=== PATIENT | female | born 1990 | race Caucasian/White ===

== ENCOUNTER 2018-09-08 03:16 | Observation (INO) | payer SELFPAY ==
[~2018-09-08] VITALS: Ht 160 cm; Wt 52.6 kg
--- OUTSIDE RECORDS SUMMARY | ~2018-09-08 | XMS | Clinical Summary ---
Demographics + + + | Address | [address] | | | [place] [address] | + + + | Home Phone | | + + + | Preferred Language | Unknown | + + + | Marital Status | Single | + + + | Protestant Affiliation | Unknown | + + + | Race | White | + + + | Ethnic Group | Not or | + + + Author + + + | Author | [facility] | + + + | Organization | [facility] | + + + | Address | Unknown | + + + | Phone | Unavailable | + + + Support + + +---------+ + | Name | Relationship | Address | Phone | + + +---------+ + | PHILIPPE LUX | ECON | Unknown | | + + +---------+ + Care Team Providers + +------+ + | Care Climatology Professor Name | Role | Phone | + +------+ + PP | Unavailable | + +------+ + Source Comments YUE is fully live on both EpicCare Ambulatory and EpicCare InPatient.[facility] Allergies + + + + + + | Active Allergy | Reactions | Severity | Noted | Comments | | | | | Date | | + + + + + + | Amoxicillin | | | 12/16/20 | | | | | | 03 | | + + + + + + | Lidocaine | | | 12/16/20 | | | | | | 03 | | + + + + + + | Penicillins | | | 12/16/20 | | | | | | 03 | | + + + + + + Current Medications Not on file Active Problems Not on file Social History + +-------+ +--------+------+ | Tobacco Use | Types | Packs/Day | Years | Date | | | | | Used | | + +-------+ +--------+------+ | Never Assessed | | | | | + +-------+ +--------+------+ + + + | Sex Assigned at | Date Recorded | | | | + + + | Not on file | | + + + Plan of Treatment + + + + + | Health Maintenance | Due Date | Last Done | Comments | + + + + + | Influenza (Flu) | | | | | vaccination (#1) | 8 | | | + + + + + Results Not on filefrom Last 3 Months"
--- OUTSIDE RECORDS SUMMARY | ~2018-09-08 | XMS | Clinical Summary ---
Demographics + + + | Address | [address] | | | [place] [address] | + + + | Home Phone | | + + + | Preferred Language | Unknown | + + + | Marital Status | Single | + + + | Druze Affiliation | Unknown | + + + | Race | White | + + + | Ethnic Group | Not or | + + + Author + + + | Author | [facility] | + + + | Organization | [facility] | + + + | Address | Unknown | + + + | Phone | Unavailable | + + + Support + + +---------+ + | Name | Relationship | Address | Phone | + + +---------+ + | PHILIPPE LUX | ECON | Unknown | | + + +---------+ + Care Team Providers + +------+ + | Care Asian Art Curator Name | Role | Phone | + +------+ + PP | Unavailable | + +------+ + Source Comments YUE is fully live on both EpicCare Ambulatory and EpicCare InPatient.[facility] Allergies + + + + + + [...]
--- OUTSIDE RECORDS SUMMARY | ~2018-09-08 | XMS | Clinical Summary ---
Demographics + + + | Address | [address] | | | [place] [address] | + + + | Home Phone | | + + + | Preferred Language | Unknown | + + + | Marital Status | Single | + + + | Druze Affiliation | Unknown | + + + | Race | Unknown | + + + | Ethnic Group | Unknown | + + + Author + + + | Author | [facility] | | | and [place] | + + + | Organization | [facility] | | | and [place]ana | + + + | Address | Unknown | + + + | Phone | Unavailable | + + + Support + + +---------+ + | Name | Relationship | Address | Phone | + + +---------+ + | PHILIPPE LUX | ECON | Unknown | | + + +---------+ + Care Team Providers + +------+ + | Care Furniture Associate Name | Role | Phone | + +------+ + PP | Unavailable | + +------+ + Allergies Not on File Medications Not on file Active Problems Not [...] on file | | + + + + + + + | Job Start Date | Occupation | Industry | + + + + | Not on file | Not on file | Not on file | + + + + + + + + | Travel History | Travel Start | Travel End | + + + + + + | No recent travel history available. | + + Plan of Treatment + + + + + | Health Maintenance | Due Date | Last Done | Comments | + + + + + | Vaccine: | | | | | Dtap/Tdap/Td (1 - | 8 | | | | Tdap) | | | | + + + + + | Cervical Cancer | | | | | Screening (Pap) | 0 | | | + + + + + | Vaccine: Influenza | | | | | (Season Ended) | 9 | | | + + + + + Results Not on filefrom Last 3 Months"
--- OUTSIDE RECORDS SUMMARY | ~2018-09-08 | XMS | Clinical Summary ---
Demographics + + + | Address | [address] | | | [place] [address] | + + + | Home Phone | | + + + | Preferred Language | Unknown | + + + | Marital Status | Single | + + + | Cheondoism Affiliation | Unknown | + + + | Race | Unknown | + + + | Ethnic Group | Unknown | + + + Author + + + | Author | [facility] | + + + | Organization | [facility] | + + + | Address | Unknown | + + + | Phone | Unavailable | + + + Support + + +---------+ + | Name | Relationship | Address | Phone | + + +---------+ + | Toni Henson | ECON | Unknown | | + + +---------+ + Care Team Providers + +------+ + | Care Poultry Farm Laborer Name | Role | Phone | + +------+ + | Martin Saucedo MD | PP | | + +------+ + Allergies Not on File Current Medications Not on file Active Problems [...] | + + + Plan of Treatment Not on file Results Not on filefrom Last 3 Months Insurance + +--------+ +------+-------+---------+ | Payer | Benefi | Subscriber | Type | Phone | Address | | | t Plan | ID | | | | | | / | | | | | | | Group | | | | | + +--------+ +------+-------+---------+ | [employer] | ODS | [id number] | | | | | | HEALTH | | | | | | | PLAN | | | | | + +--------+ +------+-------+---------+ + +--------+ +--------+ + + | Guarantor Name | Accoun | Relation to | Date | Phone | Billing Address | | | t Type | Patient | of | | | | | | | | | | + +--------+ +--------+ + + | LINDA LUX | Person | Self [birth year] Home: | [address] | | | al/Fam | | 1990 | [phone] [place] [address] | | | joy | | | [phone] | | + +--------+ +--------+ + +"
--- OUTSIDE RECORDS SUMMARY | ~2018-09-08 | XMS | Clinical Summary ---
Demographics + + + | Address | [address] | | | [place] [address] | + + + | Home Phone | | + + + | Preferred Language | Unknown | + + + | Marital Status | Single | + + + | Zoroastrianism Affiliation | Unknown | + + + | Race | Unknown | + + + | Ethnic Group | Unknown | + + + Author + + + | Author | [facility] | + + + | Organization | [facility] | + + + | Address | Unknown | + + + | Phone | Unavailable | + + + Support + + +---------+ + | Name | Relationship | Address | Phone | + + +---------+ + | Toni Henson | ECON | Unknown | | + + +---------+ + Care Team Providers + +------+ + | Care Spanish Moss Picker Name | Role | Phone | + [...] | [employer] | ODS | [id number] | | | | | | HEALTH [...] | 1990 | [phone] | [place] [address] | | | joy | | | [phone] | | + +--------+ +--------+ + +"
--- OUTSIDE RECORDS SUMMARY | ~2018-09-08 | XMS | Clinical Summary ---
Demographics + + + | Address | [address] | | | [place] [address] | + + + | Home Phone | | + + + | Preferred Language | Unknown | + + + | Marital Status | Single | + + + | Islam Affiliation | Unknown | + + + | Race | White | + + + | Ethnic Group | Not or | + + + Author + + + | Author | [facility] | + + + | Organization | [facility] | + + + | Address | Unknown | + + + | Phone | Unavailable | + + + Support + + +---------+ + | Name | Relationship | Address | Phone | + + +---------+ + | PHILIPPE LUX | ECON | Unknown | | + + +---------+ + Care Team Providers + +------+ + | Care C D Stripper Name | Role | Phone | + +------+ + PP | Unavailable | + +------+ + Source Comments YUE is fully live on both EpicCare Ambulatory and EpicCare InPatient.[facility] Allergies + + + + + + [...]
--- OUTSIDE RECORDS SUMMARY | ~2018-09-08 | XMS | Clinical Summary ---
Demographics + + + | Address | [address] | | | [place] [address] | + + + | Home Phone | | + + + | Preferred Language | Unknown | + + + | Marital Status | Single | + + + | Pentecostal Affiliation | Unknown | + + + | Race | Unknown | + + + | Ethnic Group | Unknown | + + + Author + + + | Author | [facility] | | | and [place] | + + + | Organization | [facility] | | | and [place] | [...] Team Providers + +------+ + | Care Welder Fitter Arc Name | Role | Phone | + [...]
--- OUTSIDE RECORDS SUMMARY | ~2018-09-08 | XMS | Clinical Summary ---
Demographics + + + | Address | [address] | | | [place] [address] | + + + | Home Phone | | + + + | Preferred Language | Unknown | + + + | Marital Status | Single | + + + | Bahai Affiliation | Unknown | + + + | Race | Unknown | + + + | Ethnic Group | Unknown | + + + Author + + + | Author | [facility] | | | and [place] | + + + | Organization | [facility] | | | and [...] Team Providers + +------+ + | Care Ic Designer Gate Arrays Name | Role | Phone | + [...]
--- OUTSIDE RECORDS SUMMARY | ~2018-09-08 | XMS | Clinical Summary ---
Demographics + + + | Address | [address] | | | [place] [address] | + + + | Home Phone | | + + + | Preferred Language | Unknown | + + + | Marital Status | Single | + + + | Yazidi Affiliation | Unknown | + + + | Race | Unknown | + + + | Ethnic Group | Unknown | + + + Author + + + | Author | [facility] | + + + | Organization | [facility] | + + + | Address | Unknown | + + + | Phone | Unavailable | + + + Support + + +---------+ + | Name | Relationship | Address | Phone | + + +---------+ + | Toni Henson | ECON | Unknown | | + + +---------+ + Care Team Providers + +------+ + | Care Piano Refinisher Name | Role | Phone | + [...] | [employer] | ODS | [id number] | | | | | | HEALTH [...] | 1990 | [phone] | [place] [address] | | | joy | | | [phone] | | + +--------+ +--------+ + +"
[~2018-09-08 03:16] MED LIST: AZITHROMYCIN250 MG PO; CEPHALEXIN500 MG PO; CLINDAMYCIN HC150 MG PO; DICLOFENAC SODI50 MG PO; DOXYCYCLINE MO100 MG PO; IBUPROFEN800 MG PO; METHYLPREDNISOLO4 M1 PO; NAPROSYN500 MG PO; PREDNISONE20 MG PO; PROAIR HFA8.5 GM INH; PROMETHAZINE-COD5 ML PO; ROBITUSSIN NIG118 ML PO; VENTOLIN HFA18 GM INH; VITAFOL-OB+DHA1 EACH PO; ZITHROMAX250 MG PO; ZOFRAN4 MG PO
--- OUTSIDE RECORDS SUMMARY | 2018-09-08 03:18 | XMS ---
PreManage Notification: BILL LUX Security Motion Picture Equipment Supervisor Events No recent Security Events currently on file CRITERIA MET - Group Notification CARE PROVIDERS There are no care providers on record at this time. Rachel has no Care Guidelines for this patient. Joseph VISIT COUNT (12 MO.) 1 CINTHIA Amanda TOTAL 1 NOTE: Visits indicate total known visits. ED/UCC VISIT TRACKING (12 MO.) 09/08/2018 03:17 CINTHIA [facility] OR TYPE: Emergency COMPLAINT: - POSS FLU INPATIENT VISIT TRACKING (12 MO.) No inpatient visits to display in this time frame [id number]
--- NOTE | 2018-09-08 07:21 | NUR ---
PT TO MEDICAL ROOM 113. PT ABLE TO TRANSFER SELF TO BED FROM [facility]. REPORTS THAT SHE BEGINS TO GET NAUSEATED WITH ANY MOVEMENT OR WITH A DEEP BREATH. BOLUS FROM ED COMPLETE.
--- NOTE | 2018-09-08 08:45 | NUR ---
PATIENT STILL C/O NAUSEA, 8MG OF ZOFRAN GIVEN IV NOW
--- NOTE | 2018-09-08 09:53 | NUR ---
PATIENT STILL HAVING SEVERE NAUSEA, 12.5MG OF PHENERGAN GIVEN IV NOW, DOCTOR DHALIWAL IN TO SPEAK WITH THE PATIENT AT THIS TIME. REMINDED PATIENT AGAIN TO VOID IN THE HAT.
--- NOTE | 2018-09-08 11:50 | NUR ---
URINE DRUG SCREEN RESULTS CALLED TO DOCTOR DHALIWAL AND KCL ORDER RECEIVED AT THIS TIME.
--- NOTE | 2018-09-08 12:28 | NUR ---
PO KCL GIVEN AT THIS TIME, PATIENT HAS SOME C/O NAUSEA BUT WAS ABLE TO FALL BACK ASLEEP AFTER HAVING SMALL AMOUNT OF EMESIS. EMESIS IS CLEAR WITH RED TINT TO IT, NO BLOOD NOTED.
--- NOTE | 2018-09-08 13:49 | NUR ---
PT IS AWAKE, C/O NAUSEA COMING BACK, REQUESTING NAUSEA MEDICATION NOW. PHENERGAN 12.5MG IV GIVEN SLOWLY DILUTED. BOYFRIEND SITTING AT BEDSIDE. WARM BLANKET FOR COMFORT. CALL LIGHT IN EASY REACH.
--- NOTE | 2018-09-08 15:25 | NUR ---
PATIENT RESTING CURRENTLY, NO CURRENT C/O NAUSEA OR EMESIS.
--- NOTE | 2018-09-08 15:34 | NUR ---
MED REC COMPLETE
--- NOTE | 2018-09-08 17:10 | NUR ---
PATIENT IS CURRENTLY REQUESTING NAUSEA MEDICATION BUT HAS NOT HAD A EMESIS SINCE THIS AM. PATIENT NOT CERTAIN IF SHE IS HAVING HEART BURN OR NAUSEA. PATIENT UNDERSTANDING OF WAIT PERIOD UNTIL THE NEXT MEDICATION IS DUE.
--- NOTE | 2018-09-08 18:53 | NUR ---
PATIENT REQUESTED TO GO HOME AND ORDERED A REGULAR DINNER TRAY AND IS TOLERATING IT WITHOUT ANY NAUSEA.
--- NOTE | 2018-09-08 19:30 | NUR ---
RECEIVED SHIFT REPORT FROM [facility] SPENCER SAUCEDA. PER SPENCER SAUCEDA, PT WISHES TO LEAVE AMA AND WILL HEATER FURNACE PRESCRIPTIONS FROM PHARMACY (LISTED IN CHART).
--- NOTE | 2018-09-08 19:47 | NUR ---
PATIENT REQUSTING TO D/C HOME BUT DUE TO LOW KCL AND MAG LEVELS THE MD ADVISED THE PATIENT TO STAY FOR REPLACEMENT. PATIENT REFUSED AND REQUSTED TO LEAVE AMA.
--- NOTE | 2018-09-08 20:03 | NUR ---
VITALS DONE AND CHARTED.
--- NOTE | 2018-09-08 20:25 | NUR ---
THIS RN IN ROOM TO INTRODUCE SELF TO PT. PT IN BED AND AWAKE. RR WNL, NO DISTRESS NOTED. THIS RN DISCUSSED THE PT'S WISHES TO LEAVE AMA WITH PT. AT THIS TIME, PT CONTINUES TO WANT TO LEAVE AMA. VS COLLECTED AND STABLE. IV SITES X2 REMOVED, TIP CATHETER X2 INTACT. SITE REINFORCED WITH 2X2 AND COBAN. THIS RN DISCUSSED RISKS OF LEAVING AMA WITH PATIENT AND PT'S BOYFRIEND. PT A/OX4, DENIES PAIN, AND VERBALIZES UNDERSTANDING ASSOCIATED WITH LEAVING AMA. VSS AND DOCUMENTED. THIS RN SIGNED WITNESS FOR PT'S AMA DEPARTURE. PT DID NOT HAVE SHOES SO PT WAS TAKEN VIA WHEELCHAIR TO HOSPITAL ENTRANCE AND DEPARTED IN PERSONAL VEHICLE WITH BOYFRIEND. THIS RN INSTRUCTED BY SPENCER SAUCEDA DURING SHIFT REPORT THAT PT WAS INSTRUCTED ON HIFT THAT PERSCRIPTIONS WERE ELECTRONICALLY SENT TO PT'S PHARMACY AND CAN BE PICKED UP THERE. AT TIME OF PT'S AMA DEPARTURE, PT VERBALIZED UNDERSTANDING REGARDING PERSCRIPTION INSPECTOR PRECISION. THIS RN INSTRUCTED PT TO CALL HOSPITAL WITH ANY QUESTIONS REGARDING PERSCRPTIONS OR DEPARTURE.PT VERBALIZES UNDERSTANDING AND DENIES CONCERNS OR QUESTIONS. PT ALSO REMINDED BY THIS RN OF PT'S FOLLOWUP APPOINTMENT WITH DR NEWSOME ON 09/13/18. PT VERBALIZED UNDERSTANDING.
--- NOTE | 2018-09-13 12:01 | HP ---
[facility] [address], [place] [address] Signed ADMISSION DATE: 09/08/2018 CHIEF COMPLAINT: Nausea, vomiting in early . HISTORY OF PRESENT ILLNESS: Ms. Mazariegos is a 27-year-old, G2, P1, white female, who presented to the emergency department yesterday complaining of one day onset of severe nausea and vomiting. She reports that she has been able to keep nothing down for the whole day. She was treated in the ER with antiemetics without significant improvement. A urine test was performed and the patient was suprised to learn that she was . Ultrasound was performed that demonstrated an early intrauterine approximately 5 weeks gestation. The patient had first day of last menstrual period of 08/07/2018 and is not on control. She reports significant nausea and vomiting her last and was admitted several times per her report. She reports nothing helped, but marijuana. Again, nausea and vomiting started yesterday with constant vomiting. She smokes 2-3 bowls of marijuana per day. 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 She denies pelvic pain, cramping, or bleeding. PAST MEDICAL HISTORY: Positive for rheumatoid arthritis and scoliosis. PAST SURGICAL HISTORY: x1, and appendectomy. MEDICATIONS: None. ALLERGIES: Penicillin and amoxicillin gave her possibly hives as a child. FAMILY HISTORY: No family history of breast or ovarian cancer. SOCIAL HISTORY: The patient smokes tobacco approximately 5-10 cigarettes per day. She also smokes marijuana fairly heavily and works at a marijuana dispensary in [place]. She denies any other drug use. She denies history of sexually transmitted diseases. REVIEW OF SYSTEMS: A complete review of systems was performed and negative except per HPI. Electronically Signed By: ROCKY SHORT DO 09/13/18 1201 PATIENT NAME: BILL MAZARIEGOS HISTORY AND PHYSICAL DATE OF : 86 REPORT #: [id number] PHYSICIAN: ROCKY SHORT DO PCP: SHAMIKA GILLETTE REPORT IS CONFIDENTIAL AND NOT TO BE RELEASED WITHOUT AUTHORIZATION [facility] [address], [place] [address] Signed PHYSICAL EXAMINATION: VITAL SIGNS: Temperature 98.0, pulse 99, respiratory rate 16, and blood pressure 111/68. GENERAL: The patient is a thin white female lying on her left side in the hospital bed. She has her eyes closed and has poor eye contact and often refuses to answer questions. HEENT: Normocephalic and atraumatic. NECK: Normal, supple without lymphadenopathy or thyroid masses. LUNGS: Clear to auscultation bilaterally. HEART: Regular rate and rhythm with no murmurs noted. CHEST: Nontender to palpation. ABDOMEN: Soft, nondistended, nontender with no rebound or guarding. She has surgical scars consistent with history of laparotomy for appendectomy and Pfannenstiel incision for delivery. PELVIC: Deferred and legs are normal without edema. NEUROLOGIC: Cranial nerves are intact with normal reflexes. LABORATORY DATA: WBCs 18.8, hemoglobin 15.3, and platelets 180. Sodium 134, potassium 3.2, chloride 101, CO2 of 21, BUN 15, creatinine 0.61, glucose 212, lactic acid 1.0, calcium 9.3, phos 2.1, magnesium 1.8, AST 15, ALT 16, lipase is 16, and quant hCG is 2633. Urine is negative except for squamous cells and glucose. Toxicology positive for marijuana only. ASSESSMENT: 1. Hyperemesis gravidarum. 2. Intrauterine at 5 weeks gestation. 3. Hypokalemia. PLAN: Admit the patient for symptomatic treatment of hyperemesis. She has been given Phenergan, Reglan, and Zofran in the emergency department with slight improvement. We will give her fluids including LR and normal saline with multivitamins and replete thiamine. We will replete her hypokalemia with oral potassium 20 mEq x2 doses and recheck in the morning. We will continue symptomatic antiemetics with Zofran and Phenergan IV and transition to orals when the patient is able to tolerate a clear liquid diet. We will advance diet slowly. Rocky Short DO Electronically Signed By: ROCKY SHORT DO 09/13/18 1201 PATIENT NAME: BILL MAZARIEGOS HISTORY AND PHYSICAL DATE OF : 86 REPORT #: [id number] PHYSICIAN: ROCKY SHORT DO PCP: SHAMIKA GILLETTE REPORT IS CONFIDENTIAL AND NOT TO BE RELEASED WITHOUT AUTHORIZATION [facility] [address], [place] [address] Signed JDW/MODL /[id number] Copies: ~ Electronically Signed By: ROCKY SHORT DO 09/13/18 1201 PATIENT NAME: BILL MAZARIEGOS YULISSA HISTORY AND PHYSICAL DATE OF : [birth year] REPORT #: [id number] PHYSICIAN: ROCKY SHORT DO PCP: SHAMIKA GILLETTE REPORT IS CONFIDENTIAL AND NOT TO BE RELEASED WITHOUT AUTHORIZATION
== END 2018-09-08 20:24 | disposition left against medical advice (07) ==
LOC: ED 03:16 → MS 03:18
PROVIDERS: ADMIT Obstetrics & Gynecology
DX: O21.1 Hyperemesis gravidarum with metabolic disturbance (principal); Z3A.01 Less than 8 weeks gestation of pregnancy; E83.42 Hypomagnesemia; M41.9 Scoliosis, unspecified; O99.331 Smoking (tobacco) complicating pregnancy, first trimester; F17.210 Nicotine dependence, cigarettes, uncomplicated; M06.9 Rheumatoid arthritis, unspecified; Q05.9 Spina bifida, unspecified; O99.89 Other specified diseases and conditions complicating pregnancy, childbirth and the puerperium; Q85.02 Neurofibromatosis, type 2; Z53.21 Procedure and treatment not carried out due to patient leaving prior to being seen by health care provider; Z88.4 Allergy status to anesthetic agent; Z88.1 Allergy status to other antibiotic agents; Z88.0 Allergy status to penicillin
CPT/HCPCS: 36415; 76705; 76801; 76817; 80053; 81001; 83036; 83690; 83735; 84100; 84702; 84703; 85025; 87088; 96361; 96365; 96366; 96374; 96375; 96376; 99285-25; G0378; J1200; J2405; J2550; J2765; J3411; J7030; J7120

== ENCOUNTER 2018-12-23 15:44 | Emergency (ER) | payer OTHER ==
[~2018-12-23] VITALS: Ht 160 cm; Wt 57.2 kg
--- OUTSIDE RECORDS SUMMARY | 2018-12-23 15:48 | XMS ---
PreManage Notification: BILL LUX Security Washer Blanket Events No recent Security Events currently on file CRITERIA MET - Group Notification CARE PROVIDERS There are no care providers on record at this time. Rachel has no Care Guidelines for this patient. Joseph VISIT COUNT (12 MO.) 2 CINTHIA Amanda TOTAL 2 NOTE: Visits indicate total known visits. ED/UCC VISIT TRACKING (12 MO.) 12/23/2018 15:46 CINTHIA [facility] [place] TYPE: Emergency COMPLAINT: - VAGINAL BLEEDING/ 5 MONTHS 09/08/2018 03:17 CINTHIA [facility] [place] TYPE: Emergency COMPLAINT: - POSS FLU INPATIENT VISIT TRACKING (12 MO.) 09/08/2018 03:18 CINTHIA [facility] [place] TYPE: Observation COMPLAINT: - HYPEREMESIS GRAVIDARUM DIAGNOSES: - Neurofibromatosis, type 2 - Hyperemesis gravidarum with metabolic disturbance - Rheumatoid arthritis, unspecified - Scoliosis, unspecified - Allergy status to anesthetic agent status - Nicotine dependence, cigarettes, uncomplicated - Hypomagnesemia - Allergy status to penicillin - Procedure and treatment not carried out due to patient leaving prior to being seen by health care provider - Vomiting, unspecified - Other specified diseases and conditions complicating , childbirth and the puerperium - Spina bifida, unspecified - Less than 8 weeks gestation of - Smoking (tobacco) complicating , first trimester - Allergy status to other antibiotic agents status [email or web address]
[2018-12-23] MEDS ORDERED: PRENATAL VITAM1 EAC5 PO (15:58)
[2018-12-23] MEDS ORDERED: FOLIC ACID1 MG PO (15:58)
== END 2018-12-23 17:30 | disposition home or self-care (01) ==
LOC: ED 15:44 → FBCO 15:46 → ED 17:30
DX: O99.89 Other specified diseases and conditions complicating pregnancy, childbirth and the puerperium (principal); R10.30 Lower abdominal pain, unspecified; Z3A.19 19 weeks gestation of pregnancy
CPT/HCPCS: 99284

== ENCOUNTER 2019-05-05 03:06 | Inpatient (IN) | payer OTHER ==
[~2019-05-05] VITALS: Ht 160 cm; Wt 66.0 kg
--- NOTE | ~2019-05-05 | OR ---
[facility] [address] [place], [place] [address] Draft DATE OF OPERATION: 05/05/2019 SURGEON: Cherie Juárez MD COMPUTER PROGRAMMING MANAGER: Vikas Wilkerson MD. PREOPERATIVE DIAGNOSIS: Term , previous section, spontaneous rupture of membranes. POSTOPERATIVE DIAGNOSIS: Term , previous section, spontaneous rupture of membranes, delivered. PROCEDURE PERFORMED: Repeat section with low segment transverse uterine incision. ANESTHESIA: Spinal. ESTIMATED BLOOD LOSS: 500 mL. DRAINS: Harmon catheter. INDICATIONS AND FINDINGS: The patient is a 28-year-old female, 2, para 1, admitted at 38 and 6/7th weeks with spontaneous rupture of membranes. The patient had a planned surgery for May 07, but given her ruptured membranes a decision was made to proceed with section. She was taken to the operating room where she delivered a little boy via lower segment transverse uterine incision with Apgars of 8 and 9 and weight of 6 pounds 2 ounces. There was a nuchal cord x1. The uterus, tubes, ovaries, placenta appeared normal. DESCRIPTION OF PROCEDURE: The patient was prepped and draped in the supine position. A repeat Pfannenstiel skin incision was made and carried down through the fascia. The incision was extended laterally. The inferior and superior fascial flaps were then created. The muscles were then bluntly divided and the peritoneum opened. The incision extended superiorly and inferiorly. The Aquiles retractor was placed and the uterine incision was made at the PATIENT NAME: BILL LUX OPERATIVE REPORT DATE OF : 86 REPORT #: [id number] PHYSICIAN: CHERIE JUÁREZ MD PCP: SHAMIKA GILLETTE REPORT IS CONFIDENTIAL AND NOT TO BE RELEASED WITHOUT AUTHORIZATION [facility] [address] [place] [id number] Draft upper aspect of the bladder flap. The baby was delivered as above findings and handed off to the pediatric staff in attendance. The placenta was removed manually and the uterus explored with a lap tape assuring no remaining fragments. The edges of the incision were identified. The uterus was closed in 2 layers using 0 Monocryl. The first layer was running locking stitch and second was a vertical imbricating stitch. Good hemostasis was noted. This irrigation was carried out and again good hemostasis was noted. The retractor was removed. The peritoneum identified. The peritoneum was then closed with a running suture of 3-0 Vicryl. The muscles were brought together with interrupted sutures of 0 Vicryl. Bleeding points were controlled with cautery as well as a [id number]-qb-lyyft suture of 0 Vicryl on the right lateral rectus. ACell powder was sprinkled over the muscles to aid in healing. The fascia was then closed from each angle to the midline with a running suture of 0 Vicryl. The subcutaneous tissue was irrigated and bleeding points controlled with cautery. The incision was reapproximated with interrupted sutures of 3-0 Vicryl. The skin was closed with ronnie. All sponge and needle counts were correct. She tolerated procedure well and was taken to the recovery room in good condition. MD JOHN Bazan/MODL /[id number] Copies: ~ PATIENT NAME: MACIBILLCRISTA BARBER OPERATIVE REPORT DATE OF : 86 REPORT #: [id number] PHYSICIAN: CHERIE JUÁREZ MD PCP: SHAMIKA GILLETTE REPORT IS CONFIDENTIAL AND NOT TO BE RELEASED WITHOUT AUTHORIZATION
[~2019-05-05 03:06] MED LIST changes: +FOLIC ACID1 MG PO; +PRENATAL VITAM1 EAC5 PO
--- NOTE | 2019-05-05 08:13 | NUR ---
05/05/19 0813 Petrona Vega PATIENT IS TEARFUL AND APPEARS ANXIOUS THROUGHOUT PACU PHASE. PATIENT IS FOCUSING ON NOT BEING ABLE TO MOVE HER LEGS. PATIENT'S SIGNIFICANT OTHER IS AT THE BEDSIDE ENCOURAGING PATIENT. PATIENT DOES REDIRECT WHEN ASKED, BUT QUICKLY RETURNS TO FOCUSING ON THE INABILITY TO MOVE HER LEGS. PATIENT IS MOVING HER LEFT AND RIGHT LEG BY THE END OF HER PACU PHASE. CALL LIGHT IS WITHIN REACH. VERBAL REPORT GIVEN TO SPENCER BENTLEY AND HER QUESTIONS ARE ANSWERED.
--- NOTE | 2019-05-05 15:46 | PR ---
[facility] [address] [place], [place] [address] Signed PP Progress Notes Datetime Report Generated by CPN: 05/05/2019 15:45 SUBJECTIVE: [id number] Pain: Within normal limits Pain Comments: c/o productive cough Vital Signs: [id number] Vital Signs: Reviewed; Within Normal Limits EXAM: [id number] Cardiovascular: Normal Respiratory: Abnormal Abdomen/Uterus: Abnormal Lochia: Normal Incision: Normal Exam Comments: diffuse expiratory wheezes and rhonchi IMPRESSION/PLAN/PROCEDURES: [id number] Impression: Normal progression Other Impression: Bleeding much improved , wheezing Other Plans: albuterol nebs Progress Notes: Had continued bleeding throughout the day which finally seems to have normalized. She has received multiple meds. She also c/o cough and has wheezes and rhonchi. Will start neb treatment. Signing Physician: Cherie Juárez MD Copies: ~ *Electronically Signed* 05/05/19 1545 CHERIE JUÁREZ MD PATIENT NAME: MACIBILL PROGRESS NOTE DATE OF : 86 PHYSICIAN: CHERIE JUÁREZ MD RPT #: [id number] REPORT IS CONFIDENTIAL AND NOT TO BE RELEASED WITHOUT AUTHORIZATION
--- NOTE | 2019-05-06 07:53 | PR ---
[facility] [address] [facility] [place], [place] [address] Signed PP Progress Notes Datetime Report Generated by CPN: 05/06/2019 07:53 SUBJECTIVE: [id number] Pain: Within normal limits Pain Comments: some gas pain Flatus: No Vital Signs: [id number] Vital Signs: Reviewed; Within Normal Limits EXAM: [id number] Cardiovascular: Normal Respiratory: Normal Abdomen/Uterus: Abnormal Lochia: Normal Vulva/Perineum: Not Done Breasts: Not Done CVA Tenderness: Not Done Extremities: Normal Incision: Normal Progress: Not Applicable Exam Comments: Abdomen with active BS. Fundus firm, sl tender at U-2. H/H 10.4/30.1, WBC 18.8, plat 160k IMPRESSION/PLAN/PROCEDURES: [id number] Impression: Normal progression Other Impression: Bleeding much improved , wheezing Other Plans: ambulate, shower, K-pad Progress Notes: Doing well overall. Signing Physician: Cherie Juárez MD Copies: ~ *Electronically Signed* 05/06/19 0753 CHERIE JUÁREZ MD PATIENT NAME: BILL LUX PROGRESS NOTE DATE OF : 86 PHYSICIAN: CHERIE JUÁREZ MD RPT #: [id number] REPORT IS CONFIDENTIAL AND NOT TO BE RELEASED WITHOUT AUTHORIZATION
--- NOTE | 2019-05-07 07:40 | PR ---
[facility] [address] [facility] [place], [place] [address] Signed PP Progress Notes Datetime Report Generated by CPN: 05/07/2019 07:40 SUBJECTIVE: [id number] Pain: Within normal limits Pain Comments: had some clots overnight Nausea/Vomiting: Denies Flatus: Yes Vital Signs: [id number] Vital Signs: Reviewed; Within Normal Limits EXAM: [id number] Cardiovascular: Not Done Respiratory: Not Done Abdomen/Uterus: Abnormal Lochia: Normal Vulva/Perineum: Not Done Breasts: Not Done CVA Tenderness: Not Done Extremities: Normal Incision: Normal Progress: Not Applicable Exam Comments: Abdomen with active BS. Fundus firm, sl tender at U-1. H/H 9.5/27.9, WBC 11, plat 166k IMPRESSION/PLAN/PROCEDURES: [id number] Impression: Normal progression Other Impression: increased bleeding last night Plan: Remove ronnie; Discharge Other Plans: ambulate, shower, K-pad Procedures: None Progress Notes: Doing well except for bleeding overnight which now seems resolved again. Signing Physician: Cherie Juárez MD Copies: ~ *Electronically Signed* 05/07/19 0740 CHERIE JUÁREZ MD PATIENT NAME: BILL LUX PROGRESS NOTE DATE OF : 86 PHYSICIAN: CHERIE JUÁREZ MD RPT #: [id number] REPORT IS CONFIDENTIAL AND NOT TO BE RELEASED WITHOUT AUTHORIZATION
== END 2019-05-07 13:40 | disposition home or self-care (01) | DRG 787 ==
LOC: FBCO 03:06 → MS 03:39 → FBCO 03:39 → FBC 03:39
PROVIDERS: ADMIT Obstetrics & Gynecology
PROC: 10D00Z1 Extraction of Products of Conception, Low, Open Approach (ICD-10-PCS; principal; 2019-05-05 06:00)
DX: O34.211 Maternal care for low transverse scar from previous cesarean delivery (principal); O99.324 Drug use complicating childbirth; N85.8 Other specified noninflammatory disorders of uterus; Z3A.38 38 weeks gestation of pregnancy; Z37.0 Single live birth; O42.92 Full-term premature rupture of membranes, unspecified as to length of time between rupture and onset of labor; F12.90 Cannabis use, unspecified, uncomplicated; O99.344 Other mental disorders complicating childbirth; F41.9 Anxiety disorder, unspecified; O99.52 Diseases of the respiratory system complicating childbirth; J45.20 Mild intermittent asthma, uncomplicated; O28.2 Abnormal cytological finding on antenatal screening of mother; O99.824 Streptococcus B carrier state complicating childbirth; O99.334 Smoking (tobacco) complicating childbirth; F17.210 Nicotine dependence, cigarettes, uncomplicated; O32.2XX0 Maternal care for transverse and oblique lie, not applicable or unspecified; O69.81X0 Labor and delivery complicated by cord around neck, without compression, not applicable or unspecified; Z88.0 Allergy status to penicillin; Z79.899 Other long term (current) drug therapy
CPT/HCPCS: 36415; 85027; 94640; 99406; A9270; J0690; J1170; J1885; J2210; J2250; J2405; J2590; J7121

== ENCOUNTER 2020-06-07 10:22 | Emergency (ER) | payer OTHER ==
[~2020-06-07] VITALS: Ht 160 cm; Wt 52.2 kg
--- OUTSIDE RECORDS SUMMARY | 2020-06-07 10:24 | XMS ---
PreManage Notification: BILL LUX Security Renewals Specialist Events No recent Security Events currently on file CRITERIA MET - Group Notification CARE PROVIDERS SHAMIKA GILLETTE Nurse Practitioner: 12/25/2018-Current PHONE: [phone] Rachel has no Care Guidelines for this patient. Joseph VISIT COUNT (12 MO.) 1 CINTHIA Amanda TOTAL 1 NOTE: Visits indicate total known visits. ED/UCC VISIT TRACKING (12 MO.) 06/07/2020 10:22 CINTHIA Katz OR TYPE: Emergency COMPLAINT: - VOMITING INPATIENT VISIT TRACKING (12 MO.) No inpatient visits to display in this time frame [email or web address]
[2020-06-07] MEDS ORDERED: ONDANSETRON ODT4 MG PO (15:35)
== END 2020-06-07 15:45 | disposition home or self-care (01) ==
LOC: ED 10:22
DX: R11.10 Vomiting, unspecified (principal); F17.200 Nicotine dependence, unspecified, uncomplicated; Z88.0 Allergy status to penicillin; Z88.8 Allergy status to other drugs, medicaments and biological substances; Z88.1 Allergy status to other antibiotic agents; Z91.048 Other nonmedicinal substance allergy status; Z79.899 Other long term (current) drug therapy
CPT/HCPCS: 80053; 81001; 83735; 84703; 85025; 96374; 96375; 99284-25; J1200; J1630; J2405; J2550; J7030